=== PATIENT | male | born 1965 | race Caucasian/White ===

== ENCOUNTER 2016-12-24 12:24 | Emergency (ER) | payer BC ==
--- NOTE | 2016-12-24 13:15 | ERRECORD ---
[facility] EMERGENCY RECORD HPI COUGH (12:50 SROB) CHIEF COMPLAINT: Patient presents for evaluation of cough, productive of white sputum. HISTORIAN: History provided by patient, Initially he had a flu-like syndrome withfever and body aches 2 weeks ago but has had persistent cough. Denies ongoing fever or other symptoms. LOCATION: No localizing symptoms. QUALITY: Symptoms described as wheezing, occasionally he has wheezing. SEVERITY: Maximum severity of symptoms moderate, Currently symptoms are moderate. TIME COURSE: Gradual onset of symptoms, 20, days priror to arrival. ASSOCIATED WITH: No associated symptoms, He has chronic nasal congestion no different than usual. EXACERBATED BY: Patient's condition exacerbated by deep breaths, Patient's condition exacerbated by exercise. RELIEVED BY: Patient's condition relieved by nothing. ROS CONSTITUTIONAL: Historian denies chills, denies fever. (12:59 SROB) ENT: Historian denies epistaxis, denies otalgia, denies rhinorrhea, denies sore throat. (12:59 SROB) CARDIOVASCULAR: Historian denies chest pain. (12:59 SROB) RESPIRATORY: Historian reports cough, reports wheezing. (12:04 SROB) GI: Historian denies nausea, denies vomiting. (12:59 SROB) MUSCULOSKELETAL: Historian denies neck pain. (12:59 SROB) SKIN: Historian denies rash. (12:59 SROB) NEUROLOGIC: Historian denies headache. (12:59 SROB) PAST MEDICAL HISTORY (12:32 EPIE) MEDICAL HISTORY: Notes: chronic sinusitis, VSD (resolved), Past medical history includes history of hypertension. MALE SURGICAL HISTORY: Surgical history of tonsillectomy, Surgical history of vasectomy. PSYCHIATRIC HISTORY: No previous psychiatric history. SOCIAL HISTORY: Patient drinks socially, every week, Patient denies drug use, Patient has no smoking history. KNOWN ALLERGIES Sulfa (Sulfonamide Antibiotics) CURRENT MEDICATIONS (12:30 EPIE) lisinopril-hydrochlorothiazide: TABLET : Strength - 10 mg-12.5 mg : ORAL Patient Dose: UNK. VITAL SIGNS (12:27 EPIE) &a-1R&a+25V*p+0X*[id number]*c202B*c15G*c2P*p-0X&a-25V&a+1R Name: Jose Willis: 1965 M51 MedRec: [id number] AcctNum: [id number] Prepared: Sat Dec 24, 2016 13:35 by Interface Page 1 of 3 pMD [facility] EMERGENCY RECORD VITAL SIGNS: BP: 164/103, Pulse: 71, Resp: 20 (Non-Labored), Temp: 97.0 (Oral), O2 sat: 95 on Room Air, Time: 12/24/2016 12:27. PHYSICAL EXAM (12:59 SROB) CONSTITUTIONAL: Vital signs reviewed, Patient alert and oriented to person, place and time. HEAD: Head exam included findings of head atraumatic, normocephalic. EYES: Pupils equally round and reactive to light, Extraocular muscles intact, Conjunctiva normal. ENT: Ear exam normal, external ear normal, no drainage, no bleeding, Nose exam normal, no bleeding from nares. NECK: Neck exam included findings of normal range of motion, Trachea midline, no jugular venous distention. RESPIRATORY CHEST: Respiratory exam included findings of no respiratory distress, Breath sounds clear, No wheezing, No rales, No rhonchi. CARDIOVASCULAR: Cardiovascular exam included findings of heart rate regular rate and rhythm, Heart sounds normal, normal S1, normal S2, no murmurs. SKIN: Skin exam included findings of skin warm, dry. PROBLEM LIST No recorded problems DIAGNOSIS (12:59 SROB) FINAL: PRIMARY: ACUTE BRONCHITIS UNSPECIFIED. PRESCRIPTION predniSONE oral: TABLET : 20 mg : ORAL : Quantity: 2 Unit: tab(s) Route: ORAL Schedule: once a day (in the morning) Dispense: 10 Unit: tab(s) May substitute. Refills: No Refills . (13:00 SROB) NOTES: No Refills. (13:00 SROB) Tessalon: CAPSULE : 200 mg : ORAL : Quantity: 1 Unit: cap(s) Route: ORAL Schedule: every 6 hours PRN Dispense: 20 Unit: cap(s) May substitute. Refills: No Refills . (13:01 SROB) NOTES: No Refills. (13:01 SROB) doxycycline hyclate oral: CAPSULE : 100 mg : ORAL : Quantity: 1 Unit: cap(s) Route: ORAL Schedule: 2 times a day (before meals) Dispense: 20 Unit: cap(s) May substitute. Refills: No Refills . (13:02 SROB) NOTES: No Refills. (13:02 SROB) ProAir HFA: HFA AEROSOL WITH ADAPTER (GRAM) : 90 mcg : INHALATION : Quantity: 1-2 Unit: puff(s) Route: INHALATION Schedule: every 4 hours prn Dispense: 1 Unit: vial(s) May substitute. Refills: No Refills . (13:03 SROB) NOTES: 1 inhaler with spacer No Refills. (13:03 SROB) &a-1R&a+25V*p+0X*[id number]*c202B*c15G*c2P*p-0X&a-25V&a+1R Name: LazaroJose : 1965 [facility] MedRec: [id number] AcctNum: [id number] Prepared: Sat Dec 24, 2016 13:35 by Interface Page 2 of 3 pMD [facility] EMERGENCY RECORD DISPOSITION PATIENT: Disposition Type: Discharge, Disposition: *Discharge Home, Disposition Transport: Ambulatory, Condition: Good. (12:59 SROB) Patient left the department. (13:13 EPIE) Arroyo: EPIE=THAO Lisa, Raquel SROB=MD Rick, [facility] &a-1R&a+25V*p+0X*[id number]*c202B*c15G*c2P*p-0X&a-25V&a+1R Name: LazaroJose : 1965 [facility] MedRec: [id number] AcctNum: [id number] Prepared: Sat Dec 24, 2016 13:35 by Interface Page 3 of 3 pMD MTDD
--- NOTE | 2016-12-24 13:18 | PICIS ---
[facility] EMERGENCY RECORD TRIAGE [facility] TRIAGE NOTES: Pt reports chest congestion for the past month. Pt also reports runny nose. States he had a fever 2 weeks ago. [facility] 12:29 EPIE) PATIENT: NAME: Jose Willis, AGE: 51, GENDER: male, : Sun 1965, [facility] GREET[facility] 12:25, ECODE BILLING MAP: [facility], SSN: [id number], Zip Code: [address], KG WEIGHT: 79.38, PHONE: , , , PERSON ID: [id number], PCP: Christos BAILEY C. HENRY. ([facility] 12:29 EPIE) COMPLAINT: COUGH,CONGESTION. ([facility] 12:29 EPIE) ADMISSION: URGENCY: 4 Non Urgent, ADMISSION SOURCE: Home, TRANSPORT: CAR, BED: TRIAGE. [facility] 12:29 EPIE) TRIAGE SCREENING: Patient denies suicidal ideation, Patient denies presence of domestic violence. (12:32 EPIE) TREATMENTS IN PROGRESS: Treatments given Prehospital: none. (12:32 EPIE) PROVIDERS: TRIAGE NURSE: Raquel Lisa RN. [facility] 12:29 EPIE) VITAL SIGNS: BP 164/103, Pulse 71, Resp 20, (Non-Labored), Temp 97.0, (Oral), O2 Sat 95, on Room Air, Time 12/24/2016 12:27. (12:27 EPIE) KNOWN ALLERGIES Sulfa (Sulfonamide Antibiotics) CURRENT MEDICATIONS (12:30 EPIE) lisinopril-hydrochlorothiazide: TABLET : Strength - 10 mg-12.5 mg : ORAL Patient Dose: UNK. VITAL SIGNS (12:27 EPIE) VITAL SIGNS: BP: 164/103, Pulse: 71, Resp: 20 (Non-Labored), Temp: 97.0 (Oral), O2 sat: 95 on Room Air, Time: 12/24/2016 12:27. NURSING ASSESSMENT: RESPIRATORY /CHEST (13:02 EPIE) CONSTITUTIONAL: Patient arrives ambulatory, Gait steady, History obtained from patient, Patient appears comfortable, Patient cooperative, Patient alert, Oriented to person, place and time, Skin warm, Skin dry, Skin normal in color, Mucous membranes pink, Mucous membranes moist, Patient is well-groomed, Pt reports chest congestion for the past month. Pt also reports runny nose. States he had a fever 2 weeks ago. PAIN: Patient rates pain as 0 out of 10. RESPIRATORY/CHEST: Breath sounds clear, Respiratory assessment findings include respiratory effort easy, Respirations regular, Conversing normally, Neck and chest exam findings include trachea midline, Chest expansion equal, Chest movement symmetrical, Associated with cough, productive of, white sputum. &a-1R&a+25V*p+0X*h3105N*c202B*c15G*c2P*p-0X&a-25V&a+1R Name: Jose Willis : 1965 M51 MedRec: [id number] AcctNum: [id number] Prepared: Daron Dec 24, 2016 13:41 by Interface Page 1 of 4 pMD [facility] EMERGENCY RECORD ENT: Nasal assessment findings include nose normal to inspection, Sinuses normal, Nasal mucosa normal, Congestion, bilaterally, Mouth and throat assessment findings include mouth inspection normal, Uvula normal, Tonsils normal, Mucous membranes pink, and moist, Able to swallow, Speech normal. NURSING PROCEDURE: DISCHARGE NOTE (13:11 EPIE) DISCHARGE: Patient discharged to home, ambulating without assistance, driving self, unaccompanied, Summary of Care printed/ provided, Discharge instructions given to patient, Simple or moderate discharge teaching performed, Prescriptions given and instructions on side effects given, Name of prescription(s) given: PREDNISONE, TESSALON, DOXYCYCLINE, PROAIR HFA, Above person(s) verbalized understanding of discharge instructions and follow-up care. BELONGINGS: Belongings and valuables with patient upon arrival to the Emergency Department include:, Belongings and valuables with patient at time of discharge include:, Belongings remain with patient, Valuables remain with patient. HPI COUGH (12:50 SROB) CHIEF COMPLAINT: Patient presents for evaluation of cough, productive of white sputum. HISTORIAN: History provided by patient, Initially he had a flu-like syndrome withfever and body aches 2 weeks ago but has had persistent cough. Denies ongoing fever or other symptoms. LOCATION: No localizing symptoms. QUALITY: Symptoms described as wheezing, occasionally he has wheezing. SEVERITY: Maximum severity of symptoms moderate, Currently symptoms are moderate. TIME COURSE: Gradual onset of symptoms, 20, days priror to arrival. ASSOCIATED WITH: No associated symptoms, He has chronic nasal congestion no different than usual. EXACERBATED BY: Patient's condition exacerbated by deep breaths, Patient's condition exacerbated by exercise. RELIEVED BY: Patient's condition relieved by nothing. ROS CONSTITUTIONAL: Historian denies chills, denies fever. (12:59 SROB) ENT: Historian denies epistaxis, denies otalgia, denies rhinorrhea, denies sore throat. (12:59 SROB) CARDIOVASCULAR: Historian denies chest pain. (12:59 SROB) RESPIRATORY: Historian reports cough, reports wheezing. (12:04 SROB) GI: Historian denies nausea, denies vomiting. (12:59 SROB) MUSCULOSKELETAL: Historian denies neck pain. (12:59 SROB) SKIN: Historian denies rash. (12:59 SROB) NEUROLOGIC: Historian denies headache. (12:59 SROB) &a-1R&a+25V*p+0X*y3145F*c202B*c15G*c2P*p-0X&a-25V&a+1R Name: Jose Willis : 1965 M51 MedRec: [id number] AcctNum: [id number] Prepared: Sat Dec 24, 2016 13:41 by Interface Page 2 of 4 pMD [facility] EMERGENCY RECORD PAST MEDICAL HISTORY (12:32 EPIE) MEDICAL HISTORY: Notes: chronic sinusitis, VSD (resolved), Past medical history includes history of hypertension. MALE SURGICAL HISTORY: Surgical history of tonsillectomy, Surgical history of vasectomy. PSYCHIATRIC HISTORY: No previous psychiatric history. SOCIAL HISTORY: Patient drinks socially, every week, Patient denies drug use, Patient has no smoking history. PHYSICAL EXAM (12:59 SROB) CONSTITUTIONAL: Vital signs reviewed, Patient alert and oriented to person, place and time. HEAD: Head exam included findings of head atraumatic, normocephalic. EYES: Pupils equally round and reactive to light, Extraocular muscles intact, Conjunctiva normal. ENT: Ear exam normal, external ear normal, no drainage, no bleeding, Nose exam normal, no bleeding from nares. NECK: Neck exam included findings of normal range of motion, Trachea midline, no jugular venous distention. RESPIRATORY CHEST: Respiratory exam included findings of no respiratory distress, Breath sounds clear, No wheezing, No rales, No rhonchi. CARDIOVASCULAR: Cardiovascular exam included findings of heart rate regular rate and rhythm, Heart sounds normal, normal S1, normal S2, no murmurs. SKIN: Skin exam included findings of skin warm, dry. EVENTS TRANSFER: Triage to Emergency Triage. (Sat Dec 24, 2016 12:29 EPIE) Emergency Triage to Emergency Room -05. (12:30 EPIE) Removed from Emergency Emergency Room -05. (13:13 EPIE) PROBLEM LIST No recorded problems DIAGNOSIS (12:59 SROB) FINAL: PRIMARY: ACUTE BRONCHITIS UNSPECIFIED. DISPOSITION PATIENT: Disposition Type: Discharge, Disposition: *Discharge Home, Disposition Transport: Ambulatory, Condition: Good. (12:59 SROB) Patient left the department. (13:13 EPIE) INSTRUCTION (13:05 SROB) DISCHARGE: ASTHMATIC BRONCHITIS ADULT. FOLLOWUP: Christos BAILEY, Soumya MUÑOZ, [facility], [address] &a-1R&a+25V*p+0X*y8553I*c202B*c15G*c2P*p-0X&a-25V&a+1R Name: Jose Willis : 1965 M51 MedRec: [id number] AcctNum: [id number] [facility] 13:41 by Interface Page 3 of 4 pMD [facility] EMERGENCY RECORD [facility] [id number], [id number], Follow up with Primary Care Physician in 7-10 days. PRESCRIPTION predniSONE oral: TABLET : 20 mg : ORAL : Quantity: 2 Unit: tab(s) Route: ORAL Schedule: once a day (in the morning) Dispense: 10 Unit: tab(s) May substitute. Refills: No Refills . (13:00 SROB) NOTES: No Refills. (13:00 SROB) Tessalon: CAPSULE : 200 mg : ORAL : Quantity: 1 Unit: cap(s) Route: ORAL Schedule: every 6 hours PRN Dispense: 20 Unit: cap(s) May substitute. Refills: No Refills . (13:01 SROB) NOTES: No Refills. (13:01 SROB) doxycycline hyclate oral: CAPSULE : 100 mg : ORAL : Quantity: 1 Unit: cap(s) Route: ORAL Schedule: 2 times a day (before meals) Dispense: 20 Unit: cap(s) May substitute. Refills: No Refills . (13:02 SROB) NOTES: No Refills. (13:02 SROB) ProAir HFA: HFA AEROSOL WITH ADAPTER (GRAM) : 90 mcg : INHALATION : Quantity: 1-2 Unit: puff(s) Route: INHALATION Schedule: every 4 hours prn Dispense: 1 Unit: vial(s) May substitute. Refills: No Refills . (13:03 SROB) NOTES: 1 inhaler with spacer No Refills. (13:03 SROB) IMAGING (13:13 EPIE) *DISCHARGE INSTRUCTIONS RECEIPT: Image captured from scanner. Page 2 added. Image captured from scanner. *SUPPLY CHARGE SHEET: Image captured from scanner. ADMIN DIGITAL SIGNATURE: MD Cabrera Sam. (13:05 SROB) MD Cabrera Sam. (13:33 SROB) Arroyo: EPIE=THAO Lisa, Raquel SROB=MD Rick, James &a-1R&a+25V*p+0X*[id number]*c202B*c15G*c2P*p-0X&a-25V&a+1R Name: Jose Willis : 1965 M51 MedRec: [id number] AcctNum: [id number] Prepared: Sat Dec 24, 2016 13:41 by Interface Page 4 of 4 pMD MTDD
== END 2016-12-24 13:11 | disposition home or self-care (01) ==
LOC: NAV ERS 12:24
DX: J20.9 Acute bronchitis, unspecified (principal); I10 Essential (primary) hypertension; Q21.0 Ventricular septal defect; J32.9 Chronic sinusitis, unspecified
CPT/HCPCS: 99283